=== PATIENT | female | born 1955 ===

== ENCOUNTER → 2018-05-05 18:29 | Outpatient (REF) | payer OTHER, SELFPAY ==
[2018-05-05 18:39] LABS: Bacteria Urine None Seen; RBC Urine None Seen (0-5/HPF)
[2018-05-05 18:59] LABS: Appearance Urine UA CLEAR; Bilirubin Urine UA NEGATIVE (NEGATIVE); Color Urine UA YELLOW; Glucose Urine UA NEGATIVE (Negative); Ketones Urine UA NEGATIVE (NEGATIVE); Leukocyte Esterase Urine UA 1+ (NEGATIVE); Nitrite Urine UA NEGATIVE (Negative); Occult Blood Urine UA NEGATIVE (Negative); Protein Urine UA NEGATIVE (Negative); pH Urine UA 7.5 (4.5-8.0)
[2018-05-05 19:00] LABS: Amorphous Sediment Urine 1+; Culture Indicated Urine Specimen Cultured; Mucus Urine 1+ (Negative); WBC Urine 5-10/HPF (0-5/HPF)
== END ==
LOC: LAB 18:29
PROVIDERS: Visit Provider Family Medicine
DX: R10.11 Right upper quadrant pain (principal); R10.32 Left lower quadrant pain; K57.32 Diverticulitis of large intestine without perforation or abscess without bleeding
CPT/HCPCS: 81001; 87086